=== PATIENT | male | born 1960 | race Caucasian/White ===

== ENCOUNTER 2018-08-21 13:11 | Outpatient (CLI) | payer BC ==
--- NOTE | 2018-08-21 14:44 | RAD ---
PA AND LATERAL CHEST: History: Cough. FINDINGS: Heart size and mediastinum are within normal limits. The lungs are clear of infiltrates. No significa nt bony findings. IMPRESSION: No active intrathoracic disease. POS: [facility]
== END 2018-08-21 13:12 | disposition home or self-care (01) ==
LOC: MADRAD 13:11
PROVIDERS: ATTEND Nurse Practitioner Family
DX: I10 Essential (primary) hypertension (principal); R05 Cough
CPT/HCPCS: 71046